=== PATIENT | male | born 1995 | race Hispanic/Latino ===

== ENCOUNTER 2024-02-04 06:07 | Emergency (ER) | payer SELFPAY ==
[~2024-02-04] VITALS: Ht 10.2 cm; Wt 81.0 kg
[2024-02-04] MEDS ORDERED: DICLOFENAC SODIUM 75 MG/TAB PO ONE (06:25)
[2024-02-04] MEDS ORDERED: ACETAMINOPHEN 500 MG TAB PO ONE (06:25)
[2024-02-04 06:27] VITALS: BP 117/88
[2024-02-04 06:30] VITALS: BP 109/79
[2024-02-04] MEDS ORDERED: VOLTAREN - GENE75 MG PO (06:30)
[2024-02-04 06:43] VITALS: BP 109/82
== END 2024-02-04 07:01 | disposition home or self-care (01) | DRG 159 ==
LOC: ED 06:07
DX: M26.622 Arthralgia of left temporomandibular joint (principal)